=== PATIENT | female | born 1935 | race Caucasian/White ===

== ENCOUNTER 2019-01-23 09:18 | Day surgery (SDC) | payer MEDICARE, BC ==
[~2019-01-23 09:18] MED LIST: Acetaminophen TAB* 325 MG PO PRN; Buffered Lidocaine 1% SYRIN* 1 ML/SYRINGE INTRADERM ONE; Trypan Blue 0.06% SOL* 0.5 ML BTL ONE
[2019-01-23] MEDS ORDERED: Midazolam* 1 MG/ML 2 ML VIAL (2 MG) ONE (09:27)
[2019-01-23] MEDS ORDERED: fentaNYL* 50 MCG/ML 2 ML VIAL (100 MCG VIAL) ONE (09:27)
[2019-01-23 11:34] VITALS: BP 121/76
[2019-01-23] MEDS ORDERED: Phenylephr/Ketorolac 1%/0.3% OPH DROP BTL ONE (12:55)
[2019-01-23] MEDS ORDERED: Ketorolac 0.5% OPHTH (NF) 0.5 % 5 ML BTL ONE (12:58)
[2019-01-23] MEDS ORDERED: Tetracaine 0.5% OPTH.SOL 4 ML* 1 DROP BTL ONE (12:58)
[2019-01-23] MEDS ORDERED: Phenylephrine OPHTH SOL 2.5%* 2 ML ONE (12:58)
[2019-01-23] MEDS ORDERED: Cyclopentolate 1% OPTH.SOL* 2 ML BTL ONE (12:58)
[2019-01-23] MEDS ORDERED: Tropicamide 1% OPTH.SOL* BTL ONE (12:58)
[2019-01-23] MEDS ORDERED: Lidocaine 1%* 5 ML VIAL ONE (12:58)
[2019-01-23] MEDS ORDERED: Neomycin/Polymy/Dex OPHTH.OIN* 3.5 GM ONE (12:58)
--- NOTE | 2019-01-23 14:49 | OP ---
OPERATIVE REPORT: DATE OF OPERATION: 01/23/19 - [facility] DATE OF : 37 SURGEON: Dr. Greg Bennett. SUPERVISOR BRAIDING: None. ANESTHESIA: Topical with intravenous sedation. PRE-OP DIAGNOSIS: Dense white cataract, left eye. POST-OP DIAGNOSIS: Dense white cataract, left eye. OPERATIVE PROCEDURE: Phacoemulsification of cataract, left eye. COMPLICATIONS: None. BLOOD LOSS: None. DESCRIPTION OF PROCEDURE: The patient was brought to the operating room and given intravenous sedation. A drop of tetracaine was placed in the left eye. The patient was prepped and draped in the usual sterile fashion for ophthalmic surgery and attention was directed to the left eye where a speculum was placed. A paracentesis was created at the 5 o'clock position and 0.1 cc of 1 percent preservative-free lidocaine was injected into the anterior chamber. This was followed by air and then VisionBlue dye. Subsequently, DisCoVisc was placed into the anterior chamber. The eye was digitally stabilized while a 2.75 mm keratome was used to create a triplanar clear corneal incision at the 3 o'clock position. Omidria was added to the irrigation solution. A continuous curvilinear capsulorrhexis was created with a cystotome and Utrata forceps. BSS on a cannula was used to hydrodissect the lens from the capsule. Phacoemulsification was performed in a [id number] technique to create four fragments which were removed. Scant residual cortical material remained. This was removed with irrigation and aspiration. DisCoVisc was used to inflate the capsular bag. An AU00T0 19.0 diopter lens was inserted into the capsular bag. Viscoelastic was removed from the eye using irrigation and aspiration. BSS on a cannula was used to hydrate the corneal stroma and seal the wound. At the end of the case, the pupil was round. The lens was centered and stable. The eye pressure appeared normal and the wound was water tight. The speculum was removed and topical Maxitrol ointment was placed on the surface of the eye. The eye was closed, patched and shielded and the patient was sent to the recovery room in stable condition with postoperative instructions and follow-up appointment given. [id number]/[facility] #: [id number] [facility] HOSPITALConstantin
== END 2019-01-23 11:10 | disposition home or self-care (01) ==
LOC: OREAST 09:18
PROVIDERS: ATTEND Ophthalmology
DX: H25.812 Combined forms of age-related cataract, left eye (principal); I10 Essential (primary) hypertension; K21.9 Gastro-esophageal reflux disease without esophagitis; M19.90 Unspecified osteoarthritis, unspecified site; F03.90 Unspecified dementia, unspecified severity, without behavioral disturbance, psychotic disturbance, mood disturbance, and anxiety
CPT/HCPCS: A9270-GY; C9447; J2250; J3010; V2632

== ENCOUNTER 2019-01-30 13:20 | Day surgery (SDC) | payer MEDICARE, BC ==
[~2019-01-30 13:20] MED LIST changes: +Cyclopentolate 1% OPTH.SOL* 2 ML BTL ONE; +Ketorolac 0.5% OPHTH (NF) 0.5 % 5 ML BTL ONE; +Lidocaine 1%* 5 ML VIAL ONE; +Neomycin/Polymy/Dex OPHTH.OIN* 3.5 GM ONE; +Phenylephrine OPHTH SOL 2.5%* 2 ML ONE; +Tetracaine 0.5% OPTH.SOL 4 ML* 1 DROP BTL ONE; +Tropicamide 1% OPTH.SOL* BTL ONE; -Trypan Blue 0.06% SOL* 0.5 ML BTL ONE
[2019-01-30] MEDS ORDERED: fentaNYL* 50 MCG/ML 2 ML VIAL (100 MCG VIAL) ONE (14:45)
[2019-01-30] MEDS ORDERED: Midazolam* 1 MG/ML 2 ML VIAL (2 MG) ONE (14:45)
[2019-01-30] MEDS ORDERED: Trypan Blue 0.06% SOL* 0.5 ML BTL ONE (15:04)
[2019-01-30 15:39] VITALS: BP 133/85
[2019-01-30] MEDS ORDERED: Phenylephr/Ketorolac 1%/0.3% OPH DROP BTL ONE (16:06)
--- NOTE | 2019-01-30 22:42 | OP ---
DATE OF OPERATION: 01/30/19 [facility] DATE OF : 37 SURGEON: Dr. Greg Bennett. CLINICAL RESEARCH MONITOR: None. ANESTHESIA: Topical with intravenous sedation. PRE-OP DIAGNOSIS: Cataract, right eye. POST-OP DIAGNOSIS: Cataract, right eye. OPERATIVE PROCEDURE: Phacoemulsification and cataract extraction with posterior chamber intraocular lens implant, right eye. COMPLICATIONS: None. BLOOD LOSS: None. DESCRIPTION OF PROCEDURE: The patient was brought to the operating room and received a small amount of intra-venous sedation. A drop of Tetracaine was placed in her right eye. She was prepped and draped in the usual sterile fashion for ophthalmic surgery and attention was directed to the right eye where a speculum was placed. A paracentesis was created at the 11 o'clock position and 0.1 cc of 1 percent preservative-free Lidocaine was injected into the anterior chamber followed by DisCoVisc. The eye was digitally stabilized while a 2.75 mm keratome was used to create a triplanar clear corneal incision at the 9 o'clock position. A continuous curvilinear capsulorrhexis was created with a cystotome and Utrata forceps. BSS on a cannula was used to hydrodissect the lens from the capsule. Phacoemulsification was performed in a divide-and- conquer technique to create four fragments which were removed. Residual cortical material was removed with irrigation and aspiration. DisCoVisc was used to inflate the capsular bag and an AU00T0 20.0 diopter lens was folded and inserted into the capsular bag. DisCoVisc was removed using irrigation and aspiration. BSS on a cannula was used to hydrate the corneal stroma and seal the wound. At the end of the case the pupil was round and the lens was centered. The eye was of normal pressure and the wound was water tight. The speculum was removed and topical Maxitrol ointment was placed on the surface of the eye. The eye was closed, patched and shielded and the patient was sent to the recovery room in stable condition with post operative instructions and follow-up appointment given. [id number]/[facility] #: [id number] [facility]
== END 2019-01-30 15:46 | disposition home or self-care (01) ==
LOC: OREAST 13:20
PROVIDERS: ATTEND Ophthalmology
DX: H25.811 Combined forms of age-related cataract, right eye (principal); I10 Essential (primary) hypertension; K21.9 Gastro-esophageal reflux disease without esophagitis; F03.90 Unspecified dementia, unspecified severity, without behavioral disturbance, psychotic disturbance, mood disturbance, and anxiety
CPT/HCPCS: A9270-GY; C9447; J2250; J3010; V2632

== ENCOUNTER 2020-04-02 09:03 | Inpatient (IN) ==
[2020-04-02 10:02] LABS: ABS Eosinophils 0.2 10^3/ul (0-0.6); ABS Lymphocytes 1.3 10^3/ul (1.0-4.8); ABS Monocytes 0.7 10^3/ul (0-0.8); ABS Neutrophils 3.1 10^3/ul (1.5-7.7); Eosinophil % 3.2 %; Hematocrit 38 % (35-47); Hemoglobin 12.8 g/dL (12.0-16.0); Lymphocyte % 24.2 %; Mean Corpuscular HGB Conc 34 g/dL (31-36); Mean Corpuscular Hemoglobin 34 pg (27-31); Mean Corpuscular Volume 101 fL (80-97); Mean Platelet Volume 7.1 fL (7.4-10.4); Platelet Count 180 10^3/uL (150-450); Red Blood Count 3.74 10^6 /uL (3.70-4.87); Red Cell Distribution Width 15 % (10-15); White Blood Count 5.3 10^3/uL (3.5-10.8)
[2020-04-02 10:19] LABS: Albumin 3.4 g/dL (3.2-5.2); BUN/Creatinine Ratio 27.2 (8-20); Calcium 9.2 mg/dL (8.6-10.3); EGFR Non-African American 33.9 (>60); Globulin 3.8 g/dL (2-4); Potassium 4.1 mmol/L (3.5-5.0); Total Protein 7.2 g/dL (6.4-8.9)
[2020-04-02 10:20] LABS: Albumin/Globulin Ratio 0.9 (1-3); Total Bilirubin 0.4 mg/dL (0.2-1.0)
[2020-04-02] MEDS ORDERED: NS 0.9% 1000 ml BAG 1,000 ML IV ONE (10:24)
[2020-04-02 10:34] LABS: TSH Ultra Thyroid Stim Horm 2.47 mcIU/mL (0.34-5.60)
[2020-04-02 10:44] LABS: Urine Appearance Turbid; Urine Bilirubin Negative (Negative); Urine Blood 1+ (Negative); Urine Color Yellow; Urine Glucose Negative (Negative); Urine Ketones Negative (Negative); Urine Nitrite Negative (Negative); Urine Protein 2+(100 mg/dL) (Negative); Urine Specific Gravity 1.013 (1.010-1.030); Urine Urobilinogen Negative (Negative)
[2020-04-02] MEDS ORDERED: Nitrofurantoin (monohydrate/macrocrystals) 100 mg CAP PO ONE (10:50)
[2020-04-02 10:58] LABS: Urine Bacteria Absent (Absent); Urine Red Blood Cell 3+(>10/hpf) (Absent); Urine White Blood Cell 3+(>20/hpf) (Absent)
[2020-04-02 12:15] LABS: C Reactive Protein 12.48 mg/L (<8.01)
[2020-04-02] MEDS: Enoxaparin 30 MG/0.3 ML SYR SUBCUT SCH (14:06)
[2020-04-02] MEDS: cefTRIAXone 1 gm/50 mL NS BAG 1 GM/50 ML BAG IVPB SCH (14:08)
[2020-04-02] MEDS: Dextran 70/Hypromellose Tears Eye Drops 15 ml BTL (for Artificials Tears) BOTH EYES SCH (21:11)
[2020-04-02] MEDS: Nystatin TOP POWDER 15 GM BTL TOPICAL SCH (21:16)
[2020-04-03] MEDS: Nystatin TOP POWDER 15 GM BTL TOPICAL SCH ×2 (07:51→20:33)
[2020-04-03] MEDS: Dextran 70/Hypromellose Tears Eye Drops 15 ml BTL (for Artificials Tears) BOTH EYES SCH ×2 (07:51→20:30)
[2020-04-03] MEDS ORDERED: Omeprazole 20 mg CAP (NF) PO SCH (09:00)
[2020-04-03 12:02] LABS: Albumin 3.2 g/dL (3.2-5.2); Albumin/Globulin Ratio 0.9 (1-3); BUN/Creatinine Ratio 24.8 (8-20); Calcium 9.3 mg/dL (8.6-10.3); Globulin 3.7 g/dL (2-4); Potassium 4.6 mmol/L (3.5-5.0); Total Bilirubin 0.4 mg/dL (0.2-1.0); Total Protein 6.9 g/dL (6.4-8.9)
[2020-04-03] MEDS: Enoxaparin 30 MG/0.3 ML SYR SUBCUT SCH (13:43)
[2020-04-03] MEDS: cefTRIAXone 1 gm/50 mL NS BAG 1 GM/50 ML BAG IVPB SCH (13:43)
[2020-04-04] MEDS: Nystatin TOP POWDER 15 GM BTL TOPICAL SCH ×2 (11:25→19:26)
[2020-04-04] MEDS: Dextran 70/Hypromellose Tears Eye Drops 15 ml BTL (for Artificials Tears) BOTH EYES SCH ×2 (11:28→19:25)
[2020-04-04] MEDS: cefTRIAXone 1 gm/50 mL NS BAG 1 GM/50 ML BAG IVPB SCH (14:23)
[2020-04-04] MEDS: Enoxaparin 30 MG/0.3 ML SYR SUBCUT SCH (14:23)
[2020-04-05] MEDS: Nystatin TOP POWDER 15 GM BTL TOPICAL SCH ×2 (09:15→20:14)
[2020-04-05] MEDS: Dextran 70/Hypromellose Tears Eye Drops 15 ml BTL (for Artificials Tears) BOTH EYES SCH ×2 (09:15→20:14)
[2020-04-05] MEDS ORDERED: Sulfamethox/Trimethoprim DS TAB 800/160 mg PO ONE (10:00)
[2020-04-05] MEDS: Polyethylene Glycol 3350 17 GM PACKET PO SCH (11:27)
[2020-04-05] MEDS: Enoxaparin 30 MG/0.3 ML SYR SUBCUT SCH (13:39)
[2020-04-05] MEDS: Sulfamethox/Trimethoprim SS TAB 400/80 mg PO SCH (20:14)
[2020-04-06 06:37] LABS: Albumin/Globulin Ratio 0.9 (1-3); BUN/Creatinine Ratio 29.9 (8-20); Calcium 9.2 mg/dL (8.6-10.3); EGFR African American 48.5 (>60); EGFR Non-African American 40.1 (>60); Globulin 3.5 g/dL (2-4); Potassium 4.6 mmol/L (3.5-5.0); Total Bilirubin 0.3 mg/dL (0.2-1.0); Total Protein 6.5 g/dL (6.4-8.9)
[2020-04-06] MEDS: Polyethylene Glycol 3350 17 GM PACKET PO SCH (10:13)
[2020-04-06] MEDS: Sulfamethox/Trimethoprim SS TAB 400/80 mg PO SCH ×2 (10:19→20:40)
[2020-04-06] MEDS: Nystatin TOP POWDER 15 GM BTL TOPICAL SCH ×2 (10:20→20:40)
[2020-04-06] MEDS: Dextran 70/Hypromellose Tears Eye Drops 15 ml BTL (for Artificials Tears) BOTH EYES SCH ×2 (10:20→20:40)
[2020-04-06] MEDS: Enoxaparin 30 MG/0.3 ML SYR SUBCUT SCH (14:15)
[2020-04-07 07:45] LABS: BUN/Creatinine Ratio 22.7 (8-20); Calcium 9.1 mg/dL (8.6-10.3); EGFR Non-African American 33.1 (>60); Magnesium 1.8 mg/dL (1.9-2.7); Potassium 4.8 mmol/L (3.5-5.0)
[2020-04-07] MEDS: Nystatin TOP POWDER 15 GM BTL TOPICAL SCH ×2 (10:15→20:22)
[2020-04-07] MEDS: Sulfamethox/Trimethoprim SS TAB 400/80 mg PO SCH ×2 (10:28→20:22)
[2020-04-07] MEDS: Polyethylene Glycol 3350 17 GM PACKET PO SCH (10:29)
[2020-04-07] MEDS: Dextran 70/Hypromellose Tears Eye Drops 15 ml BTL (for Artificials Tears) BOTH EYES SCH ×2 (10:29→20:22)
[2020-04-07] MEDS ORDERED: Glycerine Pediatric 1.2 gm SUP PR ONE (11:42)
[2020-04-07] MEDS ORDERED: Senna TAB 8.6 mg TAB PO PRN (11:43)
[2020-04-07] MEDS ORDERED: Magnesium Hydroxide LIQ 30 ML UDC PO PRN (11:43)
[2020-04-07] MEDS: Enoxaparin 30 MG/0.3 ML SYR SUBCUT SCH (12:54)
[2020-04-07] MEDS ORDERED: Glycerin ADULT 2.4 gm SUPP PR PRN (13:05)
[2020-04-08] MEDS: Dextran 70/Hypromellose Tears Eye Drops 15 ml BTL (for Artificials Tears) BOTH EYES SCH (10:21)
[2020-04-08] MEDS: Sulfamethox/Trimethoprim SS TAB 400/80 mg PO SCH (10:21)
[2020-04-08] MEDS: Nystatin TOP POWDER 15 GM BTL TOPICAL SCH (10:22)
[2020-04-08] MEDS: Polyethylene Glycol 3350 17 GM PACKET PO SCH (10:22)
[2020-04-08 10:36] VITALS: BP 134/71
[2020-04-08] MEDS: Enoxaparin 30 MG/0.3 ML SYR SUBCUT SCH (12:15)
== END 2020-04-08 13:15 | DRG 690 ==
LOC: ED 09:03 → MED 13:00
PROVIDERS: ADMIT Internal Medicine; ATTEND Internal Medicine

== ENCOUNTER 2022-09-03 13:12 | Inpatient (IN) ==
[2022-09-03] MEDS ORDERED: Lactated Ringers 1000 ml BAG 1,000 ML IV ONE (13:36)
[2022-09-03 14:09] LABS: ABS Eosinophils 0.1 10^3/ul (0-0.6); ABS Lymphocytes 1.2 10^3/ul (1.0-4.8); ABS Monocytes 0.6 10^3/ul (0-0.8); ABS Neutrophils 3.8 10^3/ul (1.5-7.7); Eosinophil % 1.5 %; Hematocrit 38 % (35-47); Hemoglobin 12.8 g/dL (12.0-16.0); Lymphocyte % 20.2 %; Mean Corpuscular HGB Conc 33 g/dL (31-36); Mean Corpuscular Hemoglobin 32 pg (27-31); Mean Corpuscular Volume 95 fL (80-97); Mean Platelet Volume 7.2 fL (7.4-10.4); Nucleated Red Blood Cells % 0.1; Platelet Count 204 10^3/uL (150-450); Red Blood Count 4.01 10^6 /uL (3.70-4.87); Red Cell Distribution Width 17 % (10-15); White Blood Count 5.7 10^3/uL (3.5-10.8)
[2022-09-03 14:44] LABS: Albumin 2.9 g/dL (3.2-5.2); Albumin/Globulin Ratio 0.9 (1-3); Calcium 8.2 mg/dL (8.6-10.3); Globulin 3.1 g/dL (2-4); Total Bilirubin 0.5 mg/dL (0.2-1.0); eGFR CKD-EPI 16.2 (>60)
[2022-09-03] MEDS ORDERED: Sodium Polystyrene ORAL.SUSP 15 GM/60 ML BTL PO ONE (14:44)
[2022-09-03 14:47] LABS: Potassium 6.6 mmol/L (3.5-5.0)
[2022-09-03 17:50] LABS: Calcium 8.4 mg/dL (8.6-10.3); eGFR CKD-EPI 16.9 (>60)
[2022-09-03] MEDS ORDERED: NS 0.9% 1000 ml BAG 1,000 ML IV ONE (19:17)
[2022-09-03 22:00] LABS: C Reactive Protein 41.33 mg/L (<8.01)
[2022-09-03] MEDS ORDERED: NS 0.9% 1000 ml BAG 1,000 ML IV SCH (22:15)
[2022-09-03] MEDS ORDERED: Magnesium Hydroxide LIQ 30 ML UDC PO PRN (22:37)
[2022-09-03] MEDS: Enoxaparin 30 MG/0.3 ML SYR SUBCUT SCH (23:55)
[2022-09-04 01:01] LABS: Calcium 8.8 mg/dL (8.6-10.3); eGFR CKD-EPI 18.8 (>60)
[2022-09-04 01:07] LABS: Potassium 5.8 mmol/L (3.5-5.0)
[2022-09-04 07:03] LABS: CO2 Carbon Dioxide 21 mmol/L (22-32); Calcium 8.4 mg/dL (8.6-10.3); Chloride 107 mmol/L (101-111); Sodium 137 mmol/L (135-145)
[2022-09-04 07:06] LABS: Anion Gap 9 mmol/L (2-11)
[2022-09-04 07:09] LABS: Blood Urea Nitrogen 97 mg/dL (6-24); Glucose 71 mg/dL (70-100); eGFR CKD-EPI 22.5 (>60)
[2022-09-04 08:38] LABS: Magnesium 2.1 mg/dL (1.9-2.7)
[2022-09-04 11:32] LABS: Phosphorus 3.3 mg/dL (2.5-5.0); Potassium Redraw 5.2 mmol/L (3.5-5.0)
[2022-09-04] MEDS ORDERED: NS 0.9% 1000 ml BAG 1,000 ML IV ONE (11:35)
[2022-09-04 16:14] LABS: Urine Appearance Turbid; Urine Bilirubin Negative (Negative); Urine Blood 2+ (Negative); Urine Color Yellow; Urine Glucose Negative (Negative); Urine Ketones Negative (Negative); Urine Nitrite Positive (Negative); Urine Protein 1+(30 mg/dL) (Negative); Urine Specific Gravity 1.013 (1.002-1.030); Urine Urobilinogen Negative (Negative)
[2022-09-04 16:19] LABS: Urine Bacteria 2+ (Absent); Urine Red Blood Cell 2+(6-10/hpf) (Absent); Urine Squamous Epithelial Cell Present (Absent); Urine White Blood Cell 3+(>20/hpf) (Absent)
[2022-09-04] MEDS: cefTRIAXone 1 gm/50 mL D5W 1 GM/50 ML BAG IV SCH (18:26)
[2022-09-04] MEDS: Enoxaparin 30 MG/0.3 ML SYR SUBCUT SCH (20:39)
[2022-09-05 06:57] LABS: ABS Eosinophils 0.1 10^3/ul (0-0.6); ABS Lymphocytes 0.8 10^3/ul (1.0-4.8); ABS Monocytes 0.4 10^3/ul (0-0.8); ABS Neutrophils 2.2 10^3/ul (1.5-7.7); Eosinophil % 2.4 %; Hematocrit 36 % (35-47); Hemoglobin 11.4 g/dL (12.0-16.0); Lymphocyte % 22.1 %; Mean Corpuscular HGB Conc 32 g/dL (31-36); Mean Corpuscular Hemoglobin 31 pg (27-31); Mean Corpuscular Volume 99 fL (80-97); Nucleated Red Blood Cells % 0.1; Platelet Count 153 10^3/uL (150-450); Red Blood Count 3.63 10^6 /uL (3.70-4.87); Red Cell Distribution Width 18 % (10-15); White Blood Count 3.5 10^3/uL (3.5-10.8)
[2022-09-05 07:22] LABS: Calcium 8.2 mg/dL (8.6-10.3); eGFR CKD-EPI 30.8 (>60)
[2022-09-05 13:35] LABS: Rapid COVID-19 Molecular Undetected (Undetected)
[2022-09-05] MEDS: cefTRIAXone 1 gm/50 mL D5W 1 GM/50 ML BAG IV SCH (17:49)
[2022-09-05] MEDS: Enoxaparin 30 MG/0.3 ML SYR SUBCUT SCH (21:44)
[2022-09-06 06:23] LABS: ABS Eosinophils 0.1 10^3/ul (0-0.6); ABS Monocytes 0.5 10^3/ul (0-0.8); Eosinophil % 2.3 %; Hematocrit 36 % (35-47); Hemoglobin 11.6 g/dL (12.0-16.0); Lymphocyte % 28.4 %; Mean Corpuscular HGB Conc 32 g/dL (31-36); Mean Corpuscular Hemoglobin 31 pg (27-31); Mean Corpuscular Volume 98 fL (80-97); Mean Platelet Volume 7.1 fL (7.4-10.4); Nucleated Red Blood Cells % 0.2; Platelet Count 165 10^3/uL (150-450); Red Blood Count 3.71 10^6 /uL (3.70-4.87); Red Cell Distribution Width 18 % (10-15); White Blood Count 3.7 10^3/uL (3.5-10.8)
[2022-09-06 06:50] LABS: Calcium 8.6 mg/dL (8.6-10.3); eGFR CKD-EPI 31.7 (>60)
[2022-09-06 07:25] VITALS: BP 155/89
== END 2022-09-06 10:00 | DRG 683 ==
LOC: ED 13:12 → EDHOLD 13:12 → OBSVTOIN 19:21 → SUATTDRO 19:21 → MED 22:30
PROVIDERS: ADMIT Internal Medicine; ATTEND Hospitalist

== ENCOUNTER 2023-11-04 12:47 | Inpatient (IN) ==
[2023-11-04 14:01] LABS: Hematocrit 44.8 % (35-45); Hemoglobin 15.4 g/dL (11.5-14.3); Mean Corpuscular Hemoglobin 37.1 pg (27-33); Mean Corpuscular Hgb Conc 34.4 g/dL (31-36); Mean Corpuscular Volume 107.7 fL (80-97); Mean Platelet Volume 7.7 fL (7.5-11.2); Platelet Count 249 10^3/uL (150-450); Red Blood Count 4.16 10^6/uL (3.63-4.92); Red Cell Distribution Width 15.6 % (12-17)
[2023-11-04] MEDS: Lactated Ringers 1000 ml BAG 1,000 ML IV ONE (14:46)
[2023-11-04] MEDS: Dextrose 50% Syringe 50 ml 25 GM/50 ML SYRINGE IV PUSH ONE (14:57)
[2023-11-04 15:02] LABS: ABS Eosinophils 0.1 10^3/uL (0.0-0.5); ABS Lymphocytes 2.4 10^3/uL (1.0-4.8); ABS Monocytes 1.2 10^3/uL (0.0-0.9); ABS Neutrophils 8.3 10^3/uL (1.5-7.6); ABS Nucleated RBC 0.03 10^3/ul; Eosinophil % 1.1 %; Lymphocyte % 19.9 %; Nucleated Red Blood Cells % 0.3 %/100WBC (0.0-0.8)
[2023-11-04 17:05] LABS: ALT 34 U/L (7-52); Albumin 3.7 g/dL (3.2-5.2); Albumin/Globulin Ratio 0.9 (1-3); Alkaline Phosphatase 86 U/L (35-149); Anion Gap 4 mmol/L (2-16); Blood Urea Nitrogen 127 mg/dL (6-24); CO2 Carbon Dioxide 26 mmol/L (22-32); Calcium 8.8 mg/dL (8.6-10.3); Chloride 93 mmol/L (101-111); Creatinine, Serum 3.14 mg/dL (0.51-0.95); Globulin 4.1 g/dL (2-4); Glucose 245 mg/dL (70-100); Sodium 123 mmol/L (135-145); Total Bilirubin 0.7 mg/dL (0.2-1.0); Total Protein 7.8 g/dL (6.4-8.9); eGFR CKD-EPI 13.8 (>60)
[2023-11-04 18:08] LABS: Urine Appearance Extra Turbid; Urine Bacteria 3+ /HPF (Absent); Urine Bilirubin Negative (Negative); Urine Blood 2+ (Negative); Urine Glucose Trace (Negative); Urine Ketones Trace (Negative); Urine Nitrite Negative (Negative); Urine Protein 2+ (>=100 mg/dL) (Negative); Urine Red Blood Cell 3+(>10/hpf) /HPF (0-Trace); Urine Specific Gravity 1.012 (1.002-1.030); Urine Squamous Epithelial Cell Present /HPF (Absent); Urine Urobilinogen Negative (Negative); Urine White Blood Cell 3+(>20/hpf) /HPF (0-Trace); Urine pH 5.5 (5.0-8.0)
[2023-11-04 18:26] LABS: Urine Color Light-Yellow
[2023-11-04] MEDS: cefTRIAXone 2 gm/50 mL D5W 2 GM/50 ML BAG IV ONE (18:55)
[2023-11-04] MEDS: Lactated Ringers 1000 ml BAG 1,000 ML IV SCH (19:59)
[2023-11-04] MEDS: NS 0.9% 1000 ml BAG 1,000 ML IV SCH (21:20)
[2023-11-04 21:46] LABS: Potassium, Whole Blood 6.7 mmol/L (3.4-4.5)
[2023-11-04] MEDS: SODIUM ZIRCONIUM CYCLOSILICATE 10 GM PACKET PO SCH ×2 (22:23→22:33)
[2023-11-05 00:52] LABS: Osmolality Serum 323 mOsm/kg (275-295)
[2023-11-05 03:36] LABS: Potassium 6.3 mmol/L (3.5-5.0)
[2023-11-05] MEDS: Enoxaparin 30 MG/0.3 ML SYR SUBCUT SCH (05:23)
[2023-11-05] MEDS: Furosemide 40 mg/4 ml IV VIAL IV ONE (05:30)
[2023-11-05] MEDS: Albuterol 2.5mg/3 ml (0.083%) NEB.SOLN INH SCH (05:49)
[2023-11-05] MEDS: CALCIUM GLUCONATE 1GM/50ML NS 1 GM/50 ML BAG IV SCH (06:25)
[2023-11-05] MEDS: SODIUM ZIRCONIUM CYCLOSILICATE 10 GM PACKET PO SCH (08:53)
[2023-11-05 11:20] LABS: ABS Eosinophils 0.1 10^3/uL (0.0-0.5); ABS Lymphocytes 1.3 10^3/uL (1.0-4.8); ABS Monocytes 0.8 10^3/uL (0.0-0.9); ABS Neutrophils 6.4 10^3/uL (1.5-7.6); ABS Nucleated RBC 0.01 10^3/ul; Eosinophil % 1.3 %; Hematocrit 36.5 % (35-45); Hemoglobin 12.6 g/dL (11.5-14.3); Lymphocyte % 14.7 %; Mean Corpuscular Hgb Conc 34.4 g/dL (31-36); Mean Corpuscular Volume 107.6 fL (80-97); Mean Platelet Volume 7.6 fL (7.5-11.2); Nucleated Red Blood Cells % 0.1 %/100WBC (0.0-0.8); Platelet Count 177 10^3/uL (150-450); Red Blood Count 3.39 10^6/uL (3.63-4.92); Red Cell Distribution Width 15.2 % (12-17); White Blood Count 8.6 10^3/uL (3.8-11.8)
[2023-11-05 11:42] LABS: Albumin 3.2 g/dL (3.2-5.2); Albumin/Globulin Ratio 0.9 (1-3); Calcium 9.9 mg/dL (8.6-10.3); Creatinine, Serum 2.24 mg/dL (0.51-0.95); Globulin 3.7 g/dL (2-4); Magnesium 2.3 mg/dL (1.9-2.7); Phosphorus 4.7 mg/dL (2.5-5.0); Total Bilirubin 0.4 mg/dL (0.2-1.0); Total Protein 6.9 g/dL (6.4-8.9); eGFR CKD-EPI 20.7 (>60)
[2023-11-05] MEDS: NS 0.9% 1000 ml BAG 1,000 ML IV SCH ×4 (13:03→20:17)
[2023-11-05] MEDS: NS 0.9% 500 ml BAG 500 ML IV ONE (13:04)
[2023-11-05] MEDS ORDERED: Ondansetron ODT 4 mg TAB 4 MG TAB SL PRN (14:59)
[2023-11-05 17:56] LABS: Anion Gap 5 mmol/L (2-16); Blood Urea Nitrogen 91 mg/dL (6-24); CO2 Carbon Dioxide 27 mmol/L (22-32); Calcium 8.5 mg/dL (8.6-10.3); Chloride 102 mmol/L (101-111); Creatinine, Serum 2.12 mg/dL (0.51-0.95); Glucose 106 mg/dL (70-100); Magnesium 2.1 mg/dL (1.9-2.7); Sodium 134 mmol/L (135-145); eGFR CKD-EPI 22.1 (>60)
[2023-11-05] MEDS ORDERED: cefTRIAXone 1 gm/50 mL D5W 1 GM/50 ML BAG IV SCH (18:00)
[2023-11-05 19:23] LABS: Potassium, Whole Blood 3.9 mmol/L (3.4-4.5)
[2023-11-05] MEDS: NS 0.9% 250 ml 250 ML IV ONE (20:19)
[2023-11-06] MEDS: Lactated Ringers 1000 ml BAG 1,000 ML IV SCH (04:21)
[2023-11-06] MEDS: NS 0.9% 500 ml BAG 500 ML IV ONE ×2 (11:04→12:50)
[2023-11-06] MEDS: cefTRIAXone 2 gm/50 mL D5W 2 GM/50 ML BAG IV SCH (11:43)
[2023-11-06] MEDS: NS 0.9% 1000 ml BAG 1,000 ML IV ONE (12:45)
[2023-11-06 12:47] LABS: ABS Eosinophils 0.1 10^3/uL (0.0-0.5); ABS Lymphocytes 1.3 10^3/uL (1.0-4.8); ABS Monocytes 0.7 10^3/uL (0.0-0.9); ABS Neutrophils 5.4 10^3/uL (1.5-7.6); ABS Nucleated RBC 0.01 10^3/ul; Eosinophil % 1.6 %; Hemoglobin 11.5 g/dL (11.5-14.3); Lymphocyte % 17.7 %; Mean Corpuscular Hemoglobin 36.8 pg (27-33); Mean Corpuscular Hgb Conc 33.8 g/dL (31-36); Mean Corpuscular Volume 108.9 fL (80-97); Mean Platelet Volume 7.3 fL (7.5-11.2); Nucleated Red Blood Cells % 0.1 %/100WBC (0.0-0.8); Platelet Count 140 10^3/uL (150-450); Red Blood Count 3.12 10^6/uL (3.63-4.92); Red Cell Distribution Width 15.4 % (12-17); White Blood Count 7.5 10^3/uL (3.8-11.8)
[2023-11-06 13:33] LABS: Anion Gap 9 mmol/L (2-16); Blood Urea Nitrogen 77 mg/dL (6-24); CO2 Carbon Dioxide 29 mmol/L (22-32); Calcium 8.1 mg/dL (8.6-10.3); Chloride 101 mmol/L (101-111); Creatinine, Serum 1.76 mg/dL (0.51-0.95); Glucose 135 mg/dL (70-100); Sodium 139 mmol/L (135-145); eGFR CKD-EPI 27.7 (>60)
[2023-11-06] MEDS ORDERED: cefTRIAXone 1 gm/50 mL D5W 1 GM/50 ML BAG IV SCH (18:00)
[2023-11-07 07:05] LABS: ALT 18 U/L (7-52); Albumin 2.7 g/dL (3.2-5.2); Albumin/Globulin Ratio 0.9 (1-3); Alkaline Phosphatase 70 U/L (35-149); Anion Gap 8 mmol/L (2-16); Blood Urea Nitrogen 55 mg/dL (6-24); CO2 Carbon Dioxide 25 mmol/L (22-32); Calcium 7.6 mg/dL (8.6-10.3); Chloride 107 mmol/L (101-111); Creatinine, Serum 1.41 mg/dL (0.51-0.95); Glucose 100 mg/dL (70-100); Magnesium 1.6 mg/dL (1.9-2.7); Sodium 140 mmol/L (135-145); Total Bilirubin 0.3 mg/dL (0.2-1.0); Total Protein 5.7 g/dL (6.4-8.9); eGFR CKD-EPI 36.1 (>60)
[2023-11-07 07:33] LABS: ABS Eosinophils 0.1 10^3/uL (0.0-0.5); ABS Lymphocytes 1.2 10^3/uL (1.0-4.8); ABS Monocytes 0.7 10^3/uL (0.0-0.9); ABS Neutrophils 4.5 10^3/uL (1.5-7.6); ABS Nucleated RBC 0.02 10^3/ul; Eosinophil % 1.3 %; Hematocrit 33.5 % (35-45); Hemoglobin 11.1 g/dL (11.5-14.3); Lymphocyte % 18.1 %; Mean Corpuscular Hemoglobin 36.6 pg (27-33); Mean Corpuscular Hgb Conc 33.3 g/dL (31-36); Mean Corpuscular Volume 110.1 fL (80-97); Mean Platelet Volume 7.8 fL (7.5-11.2); Nucleated Red Blood Cells % 0.3 %/100WBC (0.0-0.8); Platelet Count 107 10^3/uL (150-450); Red Blood Count 3.04 10^6/uL (3.63-4.92); Red Cell Distribution Width 15.2 % (12-17); White Blood Count 6.4 10^3/uL (3.8-11.8)
[2023-11-07 08:45] LABS: Potassium Redraw 2.8 mmol/L (3.5-5.0)
[2023-11-07] MEDS: Magnesium Sulfate 2 gm BAG 2 GM/50 ML BAG IVPB ONE ×2 (09:52)
[2023-11-07] MEDS: Potassium Chlor 20 meq TAB.ER PO ONE (21:29)
[2023-11-08 09:31] LABS: Hemoglobin 11.9 g/dL (11.5-14.3); Mean Corpuscular Hgb Conc 33.9 g/dL (31-36); Mean Platelet Volume 7.5 fL (7.5-11.2); Platelet Count 130 10^3/uL (150-450); Red Blood Count 3.21 10^6/uL (3.63-4.92); Red Cell Distribution Width 15.2 % (12-17); White Blood Count 6.1 10^3/uL (3.8-11.8)
[2023-11-08 09:50] LABS: Anion Gap 11 mmol/L (2-16); Blood Urea Nitrogen 40 mg/dL (6-24); CO2 Carbon Dioxide 28 mmol/L (22-32); Calcium 8.3 mg/dL (8.6-10.3); Chloride 106 mmol/L (101-111); Creatinine, Serum 1.22 mg/dL (0.51-0.95); Glucose 117 mg/dL (70-100); Sodium 145 mmol/L (135-145)
[2023-11-08 10:11] LABS: ABS Lymphocytes 1.3 10^3/uL (1.0-4.8); ABS Monocytes 0.9 10^3/uL (0.0-0.9); ABS Neutrophils 3.8 10^3/uL (1.5-7.6); ABS Nucleated RBC 0.01 10^3/ul; Eosinophil % 0.7 %; Lymphocyte % 21.3 %; Macrocytosis 1+; Nucleated Red Blood Cells % 0.2 %/100WBC (0.0-0.8)
[2023-11-08] MEDS: Mineral Oil ENEMA 118 ML/BOTTLE BOTTLE PR ONE (11:19)
[2023-11-08 11:55] LABS: Rapid COVID-19 Molecular Undetected (Undetected)
[2023-11-08] MEDS: Potassium Chlor 20 meq TAB.ER PO ONE (12:05)
[2023-11-08] MEDS: Sodium Phosphate ADULT ENEMA 133 ML BTL PR ONE (13:55)
[2023-11-09 07:18] LABS: Calcium 8.4 mg/dL (8.6-10.3); Creatinine, Serum 1.13 mg/dL (0.51-0.95); Magnesium 1.8 mg/dL (1.9-2.7); Potassium 3.7 mmol/L (3.5-5.0); eGFR CKD-EPI 47.1 (>60)
[2023-11-09 07:19] LABS: ABS Lymphocytes 1.3 10^3/uL (1.0-4.8); ABS Monocytes 0.9 10^3/uL (0.0-0.9); ABS Neutrophils 4.6 10^3/uL (1.5-7.6); Eosinophil % 0.6 %; Hematocrit 34.9 % (35-45); Hemoglobin 11.6 g/dL (11.5-14.3); Lymphocyte % 19.4 %; Mean Corpuscular Hemoglobin 36.4 pg (27-33); Mean Corpuscular Hgb Conc 33.2 g/dL (31-36); Mean Corpuscular Volume 109.8 fL (80-97); Mean Platelet Volume 7.3 fL (7.5-11.2); Platelet Count 132 10^3/uL (150-450); Red Blood Count 3.18 10^6/uL (3.63-4.92); Red Cell Distribution Width 15.6 % (12-17); White Blood Count 6.9 10^3/uL (3.8-11.8)
[2023-11-09] MEDS: D5W 1/2 NS 1000 ml BAG 1,000 ML IV SCH (14:05)
[2023-11-09] MEDS: Magnesium Sulfate 2 gm BAG 2 GM/50 ML BAG IVPB ONE (14:05)
[2023-11-09] MEDS: KCL 10 MEQ/50 ML IVPREMIX 10 MEQ/50 ML BAG IV SCH (14:05)
[2023-11-10 07:40] LABS: ABS Eosinophils 0.1 10^3/uL (0.0-0.5); ABS Lymphocytes 1.2 10^3/uL (1.0-4.8); ABS Monocytes 0.5 10^3/uL (0.0-0.9); ABS Neutrophils 3.4 10^3/uL (1.5-7.6); ABS Nucleated RBC 0.02 10^3/ul; Eosinophil % 2.2 %; Hematocrit 32.4 % (35-45); Hemoglobin 10.8 g/dL (11.5-14.3); Lymphocyte % 23.7 %; Mean Corpuscular Hgb Conc 33.3 g/dL (31-36); Mean Corpuscular Volume 111.2 fL (80-97); Mean Platelet Volume 7.5 fL (7.5-11.2); Nucleated Red Blood Cells % 0.3 %/100WBC (0.0-0.8); Platelet Count 122 10^3/uL (150-450); Red Blood Count 2.92 10^6/uL (3.63-4.92); Red Cell Distribution Width 15.9 % (12-17); White Blood Count 5.3 10^3/uL (3.8-11.8)
[2023-11-10 07:55] LABS: Albumin 2.5 g/dL (3.2-5.2); Albumin/Globulin Ratio 0.8 (1-3); Creatinine, Serum 0.94 mg/dL (0.51-0.95); Magnesium 1.9 mg/dL (1.9-2.7); Phosphorus 1.7 mg/dL (2.5-5.0); Potassium 3.6 mmol/L (3.5-5.0); Total Bilirubin 0.3 mg/dL (0.2-1.0); Total Protein 5.5 g/dL (6.4-8.9); eGFR CKD-EPI 58.7 (>60)
[2023-11-10] MEDS: KCL 10 MEQ/50 ML IVPREMIX 10 MEQ/50 ML BAG IV SCH (08:19)
[2023-11-10] MEDS: Magnesium Sulfate 2 gm BAG 2 GM/50 ML BAG IVPB ONE (08:19)
[2023-11-10 09:30] VITALS: BP 107/80
[2023-11-10] MEDS: Potassium Phosphate IV 15 MMOL in NS 0.9% 250 ml 250 ML IVPB ONE (11:30)
== END 2023-11-11 09:11 | DRG 682 ==
LOC: ED 12:47 → EDHOLD 12:47 → SUATTDRO 18:40 → MEDTELE 21:32
PROVIDERS: ADMIT Internal Medicine; ATTEND Internal Medicine